=== PATIENT | male | born 1970 | race Caucasian/White ===

== ENCOUNTER 2016-11-10 12:30 | Emergency (ER) | payer SELFPAY ==
--- NOTE | 2016-11-10 12:45 | ER Document Report ---
ED Medical Screen (RME) - General Stated Complaint: DIFFICULTY BREATHING Mode of Arrival: Ambulatory Information source: Patient Notes: Patient presents emergency department with complaints of difficulty breathing that started Thursday, history of COPD . Reports fever and back pain but hx of back pain. Reports ICD. Patient also reports numbness in his left hand that comes and goes which started last week. Pt is in no distress speaks in clear sentences. Denies chest pain I have greeted and performed a rapid initial assessment of this patient. A comprehensive ED assessment and evaluation of the patient, analysis of test results and completion of the medical decision making process will be conducted by additional ED providers. TRAVEL OUTSIDE OF THE [place] IN LAST 30 DAYS: No - Related Data Allergies/Adverse Reactions: No Known Allergies Allergy (Verified 11/10/16 12:38) Past Medical History - Past Medical History Cardiac Medical History: Reports: Hx Hypercholesterolemia, Hx Hypertension Pulmonary Medical History: Reports: Hx COPD, Hx Pneumonia - Immunizations Hx Diphtheria, Pertussis, Tetanus Vaccination: Yes - 2009 Physical Exam - Vital signs Vitals: Temp Pulse Resp BP Pulse Ox 98.3 F 85 20 163/92 H 95 11/10/16 12:36 11/10/16 12:36 11/10/16 12:36 11/10/16 12:36 11/10/16 12:36 Course - Vital Signs Vital signs: Temp Pulse Resp BP Pulse Ox 98.3 F 85 20 163/92 H 95 11/10/16 12:36 11/10/16 12:36 11/10/16 12:36 11/10/16 12:36 11/10/16 12:36
[2016-11-10 13:51] LABS: ABSOLUTE BASOPHILS # (AUTO) 0.1 10^3/uL (0.0-0.2); ABSOLUTE EOSINOPHILS # (AUTO) 0.3 10^3/uL (0.0-0.6); ABSOLUTE LYMPHOCYTES (AUTO) 2.6 10^3/uL (0.5-4.7); ABSOLUTE NEUT (AUTO) 7.7 10^3/uL (1.7-8.2); BASOPHILS % (AUTO) 0.6 % (0-2); EOSINOPHILS % (AUTO) 2.4 % (0-6); HEMATOCRIT 48.2 % (37.9-51.0); HEMOGLOBIN 16.5 g/dL (13.5-17.0); HGB HCT DIFFERENCE 1.3; LYMPHOCYTES % (AUTO) 22.2 % (13-45); MEAN CORPUSCULAR HEMOGLOBIN 30.4 pg (27.0-33.4); MEAN CORPUSCULAR HGB CONC 34.1 g/dL (32.0-36.0); MEAN CORPUSCULAR VOLUME 89 fl (80-97); MONOCYTES % (AUTO) 8.3 % (3-13); RED BLOOD COUNT 5.41 10^6/uL (4.35-5.55); RED CELL DISTRIBUTION WIDTH 13.5 % (11.5-14.0); SEGMENTED NEUTROPHILS % (AUTO) 66.5 % (42-78); WHITE BLOOD COUNT 11.6 10^3/uL (4.0-10.5)
[2016-11-10 14:03] LABS: PROTHROMBIN TIME 12.5 SEC (11.4-15.4)
[2016-11-10 14:11] LABS: ALANINE AMINOTRANSFERASE 78 U/L (21-72); ALBUMIN 4.4 g/dL (3.5-5.0); ALKALINE PHOSPHATASE 61 U/L (38-126); ANION GAP 15 (5-19); ASPARTATE AMINO TRANSFERASE 39 U/L (17-59); BILIRUBIN,DIRECT 0.2 mg/dL (0.0-0.4); BILIRUBIN,TOTAL 0.4 mg/dL (0.2-1.3); BLOOD UREA NITROGEN 13 mg/dL (7-20); CALCIUM 9.5 mg/dL (8.4-10.2); CARBON DIOXIDE 29 mmol/L (22-30); CHLORIDE 101 mmol/L (98-107); CREATININE RESULT 0.61 mg/dL (0.52-1.25); GLUCOSE 92 mg/dL (75-110); SODIUM 145.1 mmol/L (137-145); TOTAL PROTEIN 7.6 g/dL (6.3-8.2)
--- NOTE | 2016-11-10 16:03 | EKG REPORT ---
SEVERITY:- ABNORMAL ECG - SINUS RHYTHM ABNRM R PROG, CONSIDER ASMI OR LEAD PLACEMENT : Confirmed by: James Goncalves 10-Nov-2016 16:03:07
[2016-11-10] MEDS ORDERED: PREDNISONE 20 MG TABLET PO ONE (16:09)
[2016-11-10] MEDS ORDERED: ALBUTEROL SULFATE 0.083% NEB 2.5 MG/3 ML AMPUL NEB ONE (16:10)
[2016-11-10] MEDS ORDERED: IPRATROPIUM/ALBUTEROL 0.5-2.5 MG/3 ML AMPUL NEB ONE (16:10)
--- NOTE | 2016-11-10 16:11 | ER Document Report ---
ED Respiratory Problem - General Chief Complaint: Cold Symptoms Stated Complaint: DIFFICULTY BREATHING Time seen by provider: 16:10 Mode of Arrival: Ambulatory Information source: Patient Notes: 46-year-old male with a history of asthma and COPD has been coughing and spitting up mucus since last Thursday. He had similar illness last month with Dr. Ayala treated with antibiotics and inhaled bronchodilators. He started feeling fatigued with increased congestion last week. The chest x-ray is negative that was done in triage. He was not going to mention this but he has intermittent tingling and numbness to his left hand that comes and goes for more than 3 months, raising his arm and shaking his hand makes it go away.. No history of MT, or cervical spine injury/arthritis. He does have chronic low back pain and takes oxycodone 20 mg 3 times a day for that pain. He is requesting a Toradol shot because his low back is hurting since he has been in bed so much. Has nebulizer at home. TRAVEL OUTSIDE OF THE [place] IN LAST 30 DAYS: No - Related Data Allergies/Adverse Reactions: No Known Allergies Allergy (Verified 11/10/16 12:38) Past Medical History - General Information source: Patient - Social History Smoking Status: Current Every Day Smoker Chew tobacco use (# tins/day): Yes Frequency of alcohol use: None Drug Abuse: None Lives with: Spouse/Significant other Family History: Reviewed & Not Pertinent Patient has suicidal ideation: No Patient has homicidal ideation: No - Past Medical History Cardiac Medical History: Reports: Hx Hypercholesterolemia, Hx Hypertension Pulmonary Medical History: Reports: Hx COPD, Hx Pneumonia Renal/ Medical History: Denies: Hx Peritoneal Dialysis - Immunizations Hx Diphtheria, Pertussis, Tetanus Vaccination: Yes - 2009 Review of Systems - Review of Systems Constitutional: See HPI EENT: See HPI Cardiovascular: No symptoms reported Respiratory: See HPI Gastrointestinal: No symptoms reported Genitourinary: No symptoms reported Male Genitourinary: No symptoms reported Musculoskeletal: See HPI Skin: No symptoms reported Hematologic/Lymphatic: No symptoms reported Neurological/Psychological: No symptoms reported Physical Exam - Vital signs Vitals: Temp Pulse Resp BP Pulse Ox 98.3 F 85 20 163/92 H 95 11/10/16 12:36 11/10/16 12:36 11/10/16 12:36 11/10/16 12:36 11/10/16 12:36 Interpretation: Normal, Hypertensive - General General appearance: Appears well, Alert In distress: None - HEENT Head: Normocephalic, Atraumatic Eyes: Normal Conjunctiva: Normal Pupils: PERRL Tympanic membrane: Normal Mucous membranes: Normal Pharynx: Erythema Neck: Supple. No: Lymphadenopathy - Respiratory Respiratory status: No respiratory distress Chest status: Nontender Breath sounds: Productive cough, Rhonchi - coarse stephen insp and exp Chest palpation: Normal - Cardiovascular Rhythm: Regular Heart sounds: Normal auscultation Murmur: No - Abdominal Inspection: Normal Distension: No distension Bowel sounds: Normal Tenderness: Nontender. No: Tender Organomegaly: No organomegaly - Back Back: Normal, Tender - lumbar muscles - Extremities General upper extremity: Normal inspection, Nontender, Normal color, Normal ROM , Normal temperature General lower extremity: Normal inspection, Nontender, Normal color, Normal ROM , Normal temperature, Normal weight bearing. No: Eduardo's sign - Neurological Neuro grossly intact: Yes Cognition: Normal Orientation: AAOx4 Celeste Coma Scale Eye Opening: Spontaneous [place] Coma Scale Verbal: Oriented Celeste Coma Scale Motor: Obeys Commands [place] Coma Scale Total: 15 Speech: Normal Motor strength normal: LUE, RUE, LLE, RLE Sensory: Normal - Psychological Associated symptoms: Normal affect, Normal mood - Skin Skin Temperature: Warm Skin Moisture: Dry Skin Color: Normal Skin irregularity: negative: Rash Course - Re-evaluation Re-evalutation: 11/10/16 17:17 Lungs clear after treatment feels like he is breathing better consult Dr. Poole, pt can f/u with dr. poole. Labs and chest x-ray are negative EKG shows normal sinus rhythm, dr. poole examined it. 11/10/16 17:17 11/10/16 17:23 - Vital Signs Vital signs: Temp Pulse Resp BP Pulse Ox 98.3 F 85 20 163/92 H 95 11/10/16 12:36 11/10/16 12:36 11/10/16 12:36 11/10/16 12:36 11/10/16 12:36 - Laboratory Result Diagrams: 11/10/16 13:09 11/10/16 13:09 Laboratory results interpreted by me: 11/10/16 11/10/16 13:09 13:09 WBC 11.6 H Sodium 145.1 H ALT 78 H Discharge - Discharge Clinical Impression: bronchitis Condition: Good Disposition: HOME, SELF-CARE Instructions: Bronchitis With Bronchospasm (Wheezing) ([facility]), Inhaled Bronchodilators ([facility]), Azithromycin ([facility]), Steroid Medication Additional Instructions: Stop smoking Drink plenty of fluids Rest Use your nebulizer 4 times a day Return to the emergency room if worse Please complete the patient satisfaction survey if you get one, and return it.. If you do not receive a survey, then you can go to the [facility] website, [email or web address] and place your comments about your very good care. Thank you very much. It was a pleasure being your medical provider today. Prescriptions: Albuterol Sulfate [Ventolin 0.083% Neb 2.5 mg/3 mL Ampul] 2.5 mg NEB Q3HP PRN # 25 vial PRN Reason: Albuterol Sulfate [Proair HFA Inhalation Aerosol 8.5 gm MDI] 2 puff IH Q3HP PRN #1 [id number] PRN Reason: Azithromycin [Zithromax] 250 mg PO DAILY #6 tablet Prednisone [Deltasone 10 mg Tablet] 10 mg PO ASDIR PRN #21 tablet PRN Reason: Referrals: ALLISON DUONG MD [Primary Care Provider] - Follow up in 3-5 days
[2016-11-10] MEDS ORDERED: KETOROLAC TROMETHAMINE 60 MG/2 ML SDV IM ONE (17:11)
[2016-11-10 17:35] VITALS: BP 133/95
== END 2016-11-10 17:33 | disposition home or self-care (01) ==
LOC: ER 12:30
DX: J40 Bronchitis, not specified as acute or chronic (principal); F17.200 Nicotine dependence, unspecified, uncomplicated; F17.220 Nicotine dependence, chewing tobacco, uncomplicated; E78.00 Pure hypercholesterolemia, unspecified; I10 Essential (primary) hypertension
CPT/HCPCS: 93005; 94640 ×2; 99284; 96372; 36415; 85025; 85610; 80053; 71020; 93010; J1885; J7512; J7620

== ENCOUNTER 2017-07-06 10:20 | Emergency (ER) | payer BC, OTHER ==
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
--- NOTE | 2017-07-06 12:32 | RADIOLOGY REPORT (SQ) ---
EXAM DESCRIPTION: ANKLE LEFT COMPLETE COMPLETED DATE/TIME: 07/06/2017 12:08 pm REASON FOR STUDY: wound with swelling and erythema, r/o OM COMPARISON: None. NUMBER OF VIEWS: Three views. TECHNIQUE: AP, lateral, and oblique radiographic images acquired of the left ankle. LIMITATIONS: None. FINDINGS: MINERALIZATION: Normal. BONES: No acute fracture or dislocation. No worrisome bone lesions. JOINTS: No effusions. SOFT TISSUES: No soft tissue swelling. No foreign body. OTHER: No other significant finding. IMPRESSION: Negative study of the left ankle. There is no evidence of osteomyelitis. TECHNICAL DOCUMENTATION: JOB ID: [id number] [employer]- All Rights Reserved
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
[2017-07-06] MEDS ORDERED: SULFAMETHOXAZOLE/TRIMETHOPRIM 800-160 MG TABLET PO ONE (13:27)
[2017-07-06 14:19] VITALS: BP 132/69
== END 2017-07-06 14:05 | disposition home or self-care (01) ==
LOC: ER 10:20
DX: L03.116 Cellulitis of left lower limb (principal); M25.572 Pain in left ankle and joints of left foot; V87.7XXD Person injured in collision between other specified motor vehicles (traffic), subsequent encounter; F17.200 Nicotine dependence, unspecified, uncomplicated
CPT/HCPCS: 87070; 87077; 87186; 87205; 99283

== ENCOUNTER → 2017-11-06 | Outpatient (CLI) | payer SELFPAY ==
--- NOTE | 2017-11-06 16:36 | RADIOLOGY REPORT (SQ) ---
EXAM DESCRIPTION: CHEST PA/LATERAL COMPLETED DATE/TIME: 11/06/2017 2:43 pm REASON FOR STUDY: PLEURISY COMPARISON: 11/10/2016 EXAM PARAMETERS: NUMBER OF VIEWS: two views TECHNIQUE: Digital Frontal and Lateral radiographic views of the chest acquired. RADIATION DOSE: NA LIMITATIONS: none FINDINGS: LUNGS AND PLEURA: No opacities, masses or pneumothorax. No pleural effusion. MEDIASTINUM AND HILAR STRUCTURES: No masses or contour abnormalities. HEART AND VASCULAR STRUCTURES: Heart normal size. No evidence for failure. BONES: No acute findings. HARDWARE: Loop recorder. OTHER: No other significant finding. IMPRESSION: NO SIGNIFICANT RADIOGRAPHIC FINDING IN THE CHEST. TECHNICAL DOCUMENTATION: JOB ID: [id number] [employer]- All Rights Reserved Reading location - IP/workstation name: [email or web address]
== END ==
LOC: OD 14:18
PROVIDERS: ATTEND Internal Medicine
DX: R09.1 Pleurisy (principal)
CPT/HCPCS: 71046

== ENCOUNTER 2019-05-12 15:23 | Inpatient (IN) | payer BC, OTHER ==
[2019-05-12] MEDS ORDERED: IPRATROPIUM/ALBUTEROL 0.5-2.5 MG/3 ML AMPUL NEB ONE ×2 (15:41→19:02)
--- NOTE | 2019-05-12 15:44 | ER Document Report ---
ED Medical Screen (RME) - General Chief Complaint: Breathing Difficulty Stated Complaint: DIFFICULTY BREATHING Time Seen by Provider: 05/12/19 15:38 Primary Care Provider: ALLISON DUONG MD [Primary Care Provider] - Follow up as needed Mode of Arrival: Ambulatory Information source: Patient Notes: Foot this 48-year-old male with history of COPD cardiac disease pleurisy. Patient reports he became short of breath yesterday. Went to see Dr. Duong today was prescribed antibiotics but he continued to become short of breath so he came here. Reports he supposed be on home oxygen but he lost his insurance so he does not have a home oxygen. O2 sat 89-95 on room air. Patient's short of breath. He denies chest pain. Reports nausea vomiting yesterday. Patient i s extremely tired but reports he works 12 hours a day and also has sleep apnea. I have greeted and performed a rapid initial assessment of this patient. A comprehensive ED assessment and evaluation of the patient, analysis of test results and completion of the medical decision making process will be conducted by additional ED providers. Dictation of this chart was performed using voice recognition software; therefore, there may be some unintended grammatical errors. TRAVEL OUTSIDE OF THE [place] IN LAST 30 DAYS: No - Related Data Allergies/Adverse Reactions: ibuprofen [From Motrin] Allergy (Verified 05/12/19 15:38) Past Medical History - Social History Chew tobacco use (# tins/day): No Frequency of alcohol use: None Drug Abuse: None - Past Medical History Cardiac Medical History: Reports: Hx Hypercholesterolemia, Hx Hypertension Pulmonary Medical History: Reports: Hx COPD, Hx Pneumonia Renal/ Medical History: Denies: Hx Peritoneal Dialysis - Immunizations Hx Diphtheria, Pertussis, Tetanus Vaccination: Yes - 2009 Physical Exam - Vital signs Vitals: Temp Pulse Resp BP Pulse Ox 97.6 F 71 17 159/81 H 95 05/12/19 15:30 05/12/19 15:30 05/12/19 15:30 05/12/19 15:30 05/12/19 15:30 Course - Vital Signs Vital signs: Temp Pulse Resp BP Pulse Ox 97.6 F 71 17 159/81 H 95 05/12/19 15:30 05/12/19 15:30 05/12/19 15:30 05/12/19 15:30 05/12/19 15:30 Doctor's Discharge - Discharge Referrals: ALLISON DUONG MD [Primary Care Provider] - Follow up as needed
[2019-05-12 16:36] LABS: ABSOLUTE LYMPHOCYTES (AUTO) 1.2 10^3/uL (0.5-4.7); ABSOLUTE MONOCYTES (AUTO) 0.1 10^3/uL (0.1-1.4); ABSOLUTE NEUT (AUTO) 9.7 10^3/uL (1.7-8.2); BASOPHILS % (AUTO) 0.3 % (0-2); EOSINOPHILS % (AUTO) 0.2 % (0-6); HEMATOCRIT 45.9 % (37.9-51.0); HEMOGLOBIN 15.3 g/dL (13.5-17.0); LYMPHOCYTES % (AUTO) 10.6 % (13-45); MEAN CORPUSCULAR HEMOGLOBIN 30.2 pg (27.0-33.4); MEAN CORPUSCULAR HGB CONC 33.3 g/dL (32.0-36.0); MEAN CORPUSCULAR VOLUME 91 fl (80-97); MONOCYTES % (AUTO) 0.7 % (3-13); PLATELET COUNT 170 10^3/uL (150-450); RED BLOOD COUNT 5.06 10^6/uL (4.35-5.55); SEGMENTED NEUTROPHILS % (AUTO) 88.2 % (42-78); TOTAL CELLS COUNTED % (AUTO) 100 %; WHITE BLOOD COUNT 10.9 10^3/uL (4.0-10.5)
--- NOTE | 2019-05-12 16:55 | RADIOLOGY REPORT (SQ) ---
EXAM DESCRIPTION: CHEST SINGLE VIEW COMPLETED DATE/TIME: 05/12/2019 4:36 pm REASON FOR STUDY: cough sob copd COMPARISON: Two-view chest 11/10/2016, 11/06/2017 EXAM PARAMETERS: NUMBER OF VIEWS: One view. TECHNIQUE: Single frontal radiographic view of the chest acquired. RADIATION DOSE: NA LIMITATIONS: None FINDINGS: LUNGS AND PLEURA: No opacities, masses or pneumothorax. No pleural effusion. MEDIASTINUM AND HILAR STRUCTURES: No masses. Contour normal. HEART AND VASCULAR STRUCTURES: Heart normal in size. Normal vasculature. BONES: No acute findings. HARDWARE: Loop recorder over the anterior left chest OTHER: No other significant finding. IMPRESSION: NO ACUTE RADIOGRAPHIC FINDING IN THE CHEST. TECHNICAL DOCUMENTATION: JOB ID: [id number] [employer]- All Rights Reserved Reading location - IP/workstation name: [email or web address]
[2019-05-12 16:59] LABS: ALBUMIN 4.5 g/dL (3.5-5.0); ALKALINE PHOSPHATASE 62 U/L (38-126); ANION GAP 10 (5-19); ASPARTATE AMINO TRANSFERASE 47 U/L (17-59); BILIRUBIN,DIRECT 0.2 mg/dL (0.0-0.4); BILIRUBIN,TOTAL 0.3 mg/dL (0.2-1.3); BLOOD UREA NITROGEN 16 mg/dL (7-20); CALCIUM 8.9 mg/dL (8.4-10.2); CARBON DIOXIDE 31 mmol/L (22-30); CHLORIDE 97 mmol/L (98-107); CREATINE KINASE 281 U/L (55-170); GLUCOSE 187 mg/dL (75-110); POTASSIUM 4.2 mmol/L (3.6-5.0); TOTAL PROTEIN 7.7 g/dL (6.3-8.2)
[2019-05-12 17:09] LABS: NT PRO BNP 47 pg/mL (<125)
[2019-05-12 17:10] LABS: TROPONIN I < 0.012 ng/mL
[2019-05-12 17:18] LABS: ARTERIAL BLOOD BASE EXCESS 3.6 mmol/L; ARTERIAL BLOOD FIO2 3L; ARTERIAL BLOOD H2CO3 1.78 mmol/L (1.05-1.35); ARTERIAL BLOOD HCO3 31.3 mmol/L (20-24); ARTERIAL BLOOD O2 SATURATION 93.1 % (94-98); ARTERIAL BLOOD PCO2 59.3 mmHg (35-45); ARTERIAL BLOOD PH 7.34 (7.35-7.45); ARTERIAL BLOOD PO2 71.5 mmHg (80-100); ARTERIAL BLOOD TOTAL CO2 33.1 mmol/L (23-27)
[2019-05-12 18:59] LABS: APPEARANCE,URINE SLIGHTLY-CLOUDY; BILIRUBIN,URINE NEGATIVE (NEGATIVE); COLOR,URINE YELLOW; GLUCOSE, URINE NEGATIVE (NEGATIVE); KETONES,URINE TRACE mg/dL (NEGATIVE); LEUKOCYTE ESTERASE,URINE NEGATIVE (NEGATIVE); NITRITE,URINE NEGATIVE (NEGATIVE); PROTEIN,URINE 100 mg/dL (NEGATIVE); UROBILINOGEN,URINE NEGATIVE mg/dL (<2.0)
[2019-05-12] MEDS ORDERED: MAG HYDROX/AL HYDROX/SIMETH SUSP 30 ML UDCUP PO ONE (19:07)
[2019-05-12] MEDS ORDERED: OXYCODONE HCL SR 10 MG TABLET PO ONE (19:45)
[2019-05-12] MEDS ORDERED: METHYLPREDNISOLONE INJ 125 MG/2 ML SDV IV ONE (19:54)
[2019-05-12] MEDS ORDERED: MAGNESIUM SULFATE/D5W 1 GM/100 ML RTUPB IV ONE (19:54)
--- NOTE | 2019-05-12 19:56 | ER Document Report ---
ED General - General Chief Complaint: Breathing Difficulty Stated Complaint: DIFFICULTY BREATHING Time Seen by Provider: 05/12/19 15:38 Primary Care Provider: ALLISON DUONG MD [Primary Care Provider] - Follow up as needed Mode of Arrival: Ambulatory TRAVEL OUTSIDE OF THE [place] IN LAST 30 DAYS: No - HPI Notes: Patient is a 48-year-old gentleman who presents emerged department for evaluation of cough and shortness of breath. He states that shortness of breath is been going on for several days. His significant other is had a cough that seems to be improving. He states his is not. He continues to be dry, tight. He complains of tightness across the anterior part of his chest, similar to when he had bronchitis in the past. He always has orthopnea, but does not really believe that it is much worse than normal. He does have significantly worse dyspnea on exertion. He states he felt as if he was fever, particularly fatigue, but no nanalisa fevers to his knowledge. He states that he used to be on oxygen therapy, but lost his insurance and was not on oxygen. 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 - Related Data Allergies/Adverse Reactions: ibuprofen [From Motrin] Allergy (Verified 05/12/19 15:38) Past Medical History - General Information source: Patient - Social History Smoking Status: Current Every Day Smoker Chew tobacco use (# tins/day): No Frequency of alcohol use: None Drug Abuse: None Family History: Reviewed & Not Pertinent Patient has suicidal ideation: No Patient has homicidal ideation: No - Past Medical History Cardiac Medical History: Reports: Hx Hypercholesterolemia, Hx Hypertension Pulmonary Medical History: Reports: Hx COPD, Hx Pneumonia Renal/ Medical History: Denies: Hx Peritoneal Dialysis Musculoskeletal Medical History: Reports Other - Back pain - Immunizations Hx Diphtheria, Pertussis, Tetanus Vaccination: Yes - 2009 Review of Systems - Review of Systems Constitutional: See HPI EENT: No symptoms reported Cardiovascular: See HPI Respiratory: See HPI Gastrointestinal: No symptoms reported Genitourinary: No symptoms reported Musculoskeletal: No symptoms reported Skin: No symptoms reported Neurological/Psychological: No symptoms reported Physical Exam - Vital signs Vitals: Temp Pulse Resp BP Pulse Ox 97.6 F 71 17 159/81 H 95 05/12/19 15:30 05/12/19 15:30 05/12/19 15:30 05/12/19 15:30 05/12/19 15:30 - Notes Notes: Vital signs reviewed, please refer to chart. Head is normocephalic, atraumatic. Pupils equal round, reactive to light. Neck is supple without meningismus. Heart is regular rate and rhythm. Lungs reveal diminished breath sounds throughout with expiratory wheezes, worse at the bases. Abdomen is soft, nontender, normoactive bowel sounds throughout. Extremities without cyanosis, clubbing. 1+ pitting bilateral lower extremity edema. Posterior calves are nontender. Peripheral pulses are equal. Skin is warm and dry. Patient is awake, alert, neurological exam is nonfocal. Course - Re-evaluation Re-evalutation: 05/12/19 19:52 Patient presents emergency department for evaluation. He initially came in with shortness of breath. He had a cardiac work-up, treated for COPD exacerbation. During the course of his stay, the patient had telemetry which revealed a continued sinus mechanism, but a heart rate of about 35. The patient's heart rate was labile while here. For the majority of the time his heart rate was in the 70s and 80s. He did have some drops down into the 40s. I could not correl ate any significant increase in his symptoms with this change in telemetry. After 2 duo nebs, IV magnesium, Solu-Medrol, the patient remained short of breath. Given this as well as his variable heart rate, I am inclined to admit the patient. His x-ray failed to reveal pneumonia. Awaiting phone call return for medicine. 05/12/19 19:58 Dr. Vega will admit the patient - Vital Signs Vital signs: Temp Pulse Resp BP Pulse Ox 98.3 F 91 20 165/92 H 95 05/12/19 19:32 05/12/19 19:32 05/12/19 19:32 05/12/19 19:32 05/12/19 19:32 - Laboratory Result Diagrams: 05/12/19 16:02 05/12/19 16:02 Laboratory results interpreted by me: 05/12/19 05/12/19 05/12/19 16:02 16:02 17:00 WBC 10.9 H Lymph % (Auto) 10.6 L [place] % (Auto) 0.7 L Absolute Neuts (auto) 9.7 H Seg Neutrophils % 88.2 H Carbonic Acid 1.78 H ABG pH 7.34 L ABG pCO2 59.3 H ABG pO2 71.5 L ABG HCO3 31.3 H ABG Total CO2 33.1 H ABG O2 Saturation 93.1 L Chloride 97 L Carbon Dioxide 31 H Creatinine 0.51 L Glucose 187 H Creatine Kinase 281 H Urine Protein Urine Ketones Urine Ascorbic Acid 05/12/19 18:30 WBC Lymph % (Auto) [place] % (Auto) Absolute Neuts (auto) Seg Neutrophils % Carbonic Acid ABG pH ABG pCO2 ABG pO2 ABG HCO3 ABG Total CO2 ABG O2 Saturation Chloride Carbon Dioxide Creatinine Glucose Creatine Kinase Urine Protein 100 H Urine Ketones TRACE H Urine Ascorbic Acid 40 H - Diagnostic Test Radiology reviewed: Reports reviewed Radiology results interpreted by me: 05/12/19 19:58 Chest X-Ray 05/12/19 15:42 IMPRESSION: NO ACUTE RADIOGRAPHIC FINDING IN THE CHEST. - EKG Interpretation by Me Additional EKG results interpreted by me: 05/12/19 19:58 Sinus mechanism with a rate of 85 bpm. Normal axis and intervals, nonspecific ST changes, but no acute changes concerning for ischemia or infarction. Critical Care Note - Critical Care Note Total time excluding time spent on procedures (mins): 20 Discharge - Discharge Clinical Impression: COPD with acute exacerbation, Hypoxemia, intermittent bradycardia, Hypercarbia Condition: Stable Disposition: ADMITTED INPATIENT Admitting Provider: Gary (Hospitalist) Unit Admitted: IMCU Referrals: ALLISON DUONG MD [Primary Care Provider] - Follow up as needed
[2019-05-12] MEDS ORDERED: IPRATROPIUM/ALBUTEROL 0.5-2.5 MG/3 ML AMPUL NEB PRN (19:58)
[2019-05-12] MEDS ORDERED: HYDRALAZINE HCL INJ/PF 20 MG/1 ML SDV IV PRN (19:58)
[2019-05-12] MEDS ORDERED: ACETAMINOPHEN 325 MG TABLET PO PRN (19:58)
[2019-05-12] MEDS: IPRATROPIUM/ALBUTEROL 0.5-2.5 MG/3 ML AMPUL NEB SCH (20:58)
[2019-05-12] MEDS ORDERED: CEFTRIAXONE 1 GM/D5W RTU 1 GM/50 ML RTUPB IV SCH (21:00)
[2019-05-12] MEDS: HEPARIN SOD (PORCINE) 5,000 UNIT/ML 1 ML VIAL SUBCUT SCH (21:17)
[2019-05-12 21:31] LABS: URINE AMPHETAMINES SCREEN UNCONFIRMED POSITIVE; URINE BARBITURATES SCREEN NEGATIVE; URINE BENZODIAZEPINES SCREEN NEGATIVE; URINE COCAINE SCREEN NEGATIVE; URINE MARIJUANA (THC) SCREEN NEGATIVE; URINE METHADONE SCREEN NEGATIVE; URINE PHENCYCLIDINE SCREEN NEGATIVE
[2019-05-12] MEDS ORDERED: AZITHROMYCIN 500 MG in DEXTROSE 5%-WATER 250 ML IV SCH (22:00)
[2019-05-12] MEDS: FLUTICASONE NASAL SPRAY 50 MCG/SPRY 120 SPRAY/16 GM NASL SCH (23:14)
[2019-05-12] MEDS: PREDNISONE 20 MG TABLET PO SCH (23:17)
[2019-05-13] MEDS: IPRATROPIUM/ALBUTEROL 0.5-2.5 MG/3 ML AMPUL NEB SCH ×4 (02:16→20:51)
--- NOTE | 2019-05-13 04:59 | PDOC H&P ---
History of Present Illness Admission Date/PCP: 05/12/19 20:06 ALLISON DUONG Patient complains of: Shortness of breath History of Present Illness: MALIK ANTOINE JR is a 48 year old male with a past medical history of morbid obesity, hypertension, obstructive sleep apnea, ongoing tobacco abuse, opiate dependent chronic pain on Opana 5 twice daily, Valium 5 every 6 hours, Flexeril 10 every 6. He presents with shortness of breath, nonproductive cough denying rhinorrhea or sore throat but admits to uncontrolled acid reflux, and upper airway wheeze and noncompliance with BiPAP. In the emergency room is found to have tachypnea, uncontrolled hypertension, h ypoxia and hypercapnia. He receives albuterol, oxygen and referred to the hospitalist for admission. BiPAP is ordered for a PCO2 of 60 and a PO2 of 70. Past Medical History Cardiac Medical History: Reports: Hyperlipidema, Hypertension Pulmonary Medical History: Reports: Chronic Obstructive Pulmonary Disease (COPD), Pneumonia Endocrine Medical History: Reports: Obesity Musculoskeltal Medical History: Reports: Other - Back pain Psychiatric Medical History: Reports: Tobacco Dependency Social History Information Source: Patient Smoking Status: Current Every Day Smoker Frequency of Alcohol Use: Rare Drugs: None - Advance Directive Resuscitation Status: Full Code Family History Family History: Arthritis, COPD Parental Family History Reviewed: Yes Children Family History Reviewed: Yes Sibling(s) Family History Reviewed.: Yes Medication/Allergy Home Medications: Cyclobenzaprine HCl [Flexeril 10 Mg Tablet] 10 mg PO Q6H PRN #15 tablet 03/29/13 Hydrocodone Bit/Acetaminophen [Vicodin 5-500 mg Tablet] 1 - 2 tab PO Q4H PRN #20 tablet 03/29/13 Oxymorphone HCl [Opana] 5 mg PO BID 03/29/13 Cyclobenzaprine HCl [Flexeril 10 Mg Tablet] 10 mg PO TIDP PRN #20 tablet 07/03/14 Albuterol Sulfate [Proair HFA Inhalation Aerosol 8.5 gm MDI] 2 puff IH Q3HP PRN #1 hfa.aer.ad 11/10/16 Albuterol Sulfate [Ventolin 0.083% Neb 2.5 mg/3 mL Ampul] 2.5 mg NEB Q3HP PRN #25 vial 11/10/16 Azithromycin [Zithromax] 250 mg PO DAILY #6 tablet 11/10/16 Prednisone [Deltasone 10 mg Tablet] 10 mg PO ASDIR PRN #21 tablet 11/10/16 Diazepam [Valium 5 mg Tablet] 10 mg PO QIDP PRN #20 tablet 06/29/17 Sulfamethoxazole/Trimethoprim [Bactrim Ds Tablet] 2 each PO BID #28 tablet 07/06/17 Allergies/Adverse Reactions: ibuprofen [From Motrin] Allergy (Verified 05/12/19 15:38) Review of Systems Constitutional: PRESENT: as per HPI, fatigue, weakness, weight gain. ABSENT: chills, fever(s), headache(s), weight loss Eyes: ABSENT: visual disturbances Ears: ABSENT: hearing changes Cardiovascular: ABSENT: chest pain, dyspnea on exertion, edema, orthropnea, palpitations Respiratory: PRESENT: as per HPI, cough, dyspnea. ABSENT: hemoptysis Gastrointestinal: ABSENT: abdominal pain, constipation, diarrhea, hematemesis, hematochezia, nausea, vomiting Genitourinary: ABSENT: dysuria, hematuria Musculoskeletal: ABSENT: joint swelling Integumentary: ABSENT: rash, wounds Neurological: ABSENT: abnormal gait, abnormal speech, confusion, dizziness, focal weakness, syncope Psychiatric: ABSENT: anxiety, depression, homidical ideation, suicidal ideation Endocrine: ABSENT: cold intolerance, heat intolerance, polydipsia, polyuria Hematologic/Lymphatic: ABSENT: easy bleeding, easy bruising Physical Exam Vital Signs: Temp Pulse Resp BP Pulse Ox 98.2 F 57 L 16 140/84 H 93 05/13/19 04:17 05/13/19 04:17 05/13/19 04:17 05/13/19 04:17 05/13/19 04:17 Intake & Output 05/11/19 05/12/19 05/13/19 11:59 11:59 11:59 Intake Total 500 Balance 500 Weight 124.6 kg General appearance: PRESENT: cooperative, disheveled, morbidly obese, well- developed, well-nourished Head exam: PRESENT: atraumatic, normocephalic Eye exam: PRESENT: conjunctiva pink, EOMI, PERRLA. ABSENT: scleral icterus Ear exam: PRESENT: normal external ear exam Mouth exam: PRESENT: moist, tongue midline Throat exam: PRESENT: post pharyngeal erythema Neck exam: PRESENT: full ROM. ABSENT: carotid bruit, JVD, lymphadenopathy, thyromegaly Respiratory exam: PRESENT: accessory muscle use, decreased breath sounds, prolonged expiratory phas, retraction, symmetrical, tachypnea, wheezes - Upper airway wheeze overcome by increased effort. ABSENT: rales, rhonchi Cardiovascular exam: PRESENT: RRR, tachycardia. ABSENT: diastolic murmur, rubs, systolic murmur Pulses: PRESENT: normal dorsalis pedis pul Vascular exam: PRESENT: normal capillary refill GI/Abdominal exam: PRESENT: distended, hypoactive bowel sounds, normal bowel sounds, soft. ABSENT: guarding, mass, organolmegaly, rebound, tenderness Rectal exam: PRESENT: deferred Extremities exam: PRESENT: full ROM. ABSENT: calf tenderness, clubbing, pedal edema Neurological exam: PRESENT: alert, awake, oriented to person, oriented to place, oriented to time, oriented to situation, CN II-XII grossly intact. ABSENT: motor sensory deficit Psychiatric exam: PRESENT: appropriate affect, normal mood. ABSENT: homicidal ideation, suicidal ideation Skin exam: PRESENT: dry, intact, warm. ABSENT: cyanosis, rash Results Laboratory Results: 05/12/19 16:02 05/12/19 16:02 05/12/19 05/12/19 05/12/19 16:02 16:02 17:00 WBC 10.9 H RBC 5.06 Hgb 15.3 Hct 45.9 MCV 91 MCH 30.2 MCHC 33.3 RDW 13.0 Plt Count 170 Seg Neutrophils % 88.2 H Carbonic Acid 1.78 H HCO3/H2CO3 Ratio 17:1 ABG pH 7.34 L ABG pCO2 59.3 H ABG pO2 71.5 L ABG HCO3 31.3 H ABG O2 Saturation 93.1 L ABG Base Excess 3.6 FiO2 3L Sodium 138.0 Potassium 4.2 Chloride 97 L Carbon Dioxide 31 H Anion Gap 10 BUN 16 Creatinine 0.51 L Est GFR ( Amer) > 60 Glucose 187 H Calcium 8.9 Total Bilirubin 0.3 AST 47 Alkaline Phosphatase 62 Total Protein 7.7 Albumin 4.5 Urine Color Urine Appearance Urine pH Ur Specific [place] Urine Protein Urine Glucose (UA) Urine Ketones Urine Blood Urine Nitrite Ur Leukocyte Esterase Urine WBC (Auto) Urine RBC (Auto) 05/12/19 18:30 WBC RBC Hgb Hct MCV MCH MCHC RDW Plt Count Seg Neutrophils % Carbonic Acid HCO3/H2CO3 Ratio ABG pH ABG pCO2 ABG pO2 ABG HCO3 ABG O2 Saturation ABG Base Excess FiO2 Sodium Potassium Chloride Carbon Dioxide Anion Gap BUN Creatinine Est GFR ( Amer) Glucose Calcium Total Bilirubin AST Alkaline Phosphatase Total Protein Albumin Urine Color YELLOW Urine Appearance SLIGHTLY-CLOUDY Urine pH 5.0 Ur Specific [place] 1.030 Urine Protein 100 H Urine Glucose (UA) NEGATIVE Urine Ketones TRACE H Urine Blood NEGATIVE Urine Nitrite NEGATIVE Ur Leukocyte Esterase NEGATIVE Urine WBC (Auto) 1 Urine RBC (Auto) 0 05/12/19 05/12/19 16:02 16:02 Creatine Kinase 281 H Troponin I < 0.012 NT-Pro-B Natriuret Pep 47 Impressions: Chest X-Ray 05/12/19 15:42 IMPRESSION: NO ACUTE RADIOGRAPHIC FINDING IN THE CHEST. Assessment and Plan - Diagnosis (1) Acute hypercapnic respiratory failure Is this a current diagnosis for this admission?: Yes Plan: Multifactorial secondary to opiate and benzodiazepine dependence, BiPAP noncompliance and underlying COPD exacerbation. BiPAP and education, supplemental oxygen, albuterol and Atrovent, flutter valve and incentive spirometry, empiric antibiotics, steroids, Flonase, prednisone, (2) GERD (gastroesophageal reflux disease) Is this a current diagnosis for this admission?: Yes Plan: PPI and education (3) Obstructive sleep apnea Is this a current diagnosis for this admission?: Yes Plan: BiPAP and education (4) Opiate dependence Is this a current diagnosis for this admission?: Yes Plan: Limit for increased respiratory drive, avoid withdrawal (5) Benzodiazepine dependence Is this a current diagnosis for this admission?: Yes Plan: Limited for increased respiratory drive, avoid withdrawal (6) Constipation Is this a current diagnosis for this admission?: Yes Plan: Lactulose and Fleet enema ordered. - Time Time Spent with patient: 25-34 minutes - Inpatient Certification Medical Necessity: Need Close Monitoring Due to Risk of Patient Decompensation
[2019-05-13] MEDS: HEPARIN SOD (PORCINE) 5,000 UNIT/ML 1 ML VIAL SUBCUT SCH ×3 (05:06→21:18)
[2019-05-13 06:36] LABS: ANION GAP 11 (5-19); BLOOD UREA NITROGEN 13 mg/dL (7-20); CALCIUM 9.1 mg/dL (8.4-10.2); CARBON DIOXIDE 30 mmol/L (22-30); CHLORIDE 96 mmol/L (98-107); GLUCOSE 222 mg/dL (75-110); POTASSIUM 4.4 mmol/L (3.6-5.0)
[2019-05-13 06:40] LABS: ABSOLUTE BASOPHILS # (AUTO) 0.1 10^3/uL (0.0-0.2); ABSOLUTE EOSINOPHILS # (AUTO) 0.1 10^3/uL (0.0-0.6); ABSOLUTE LYMPHOCYTES (AUTO) 1.2 10^3/uL (0.5-4.7); ABSOLUTE MONOCYTES (AUTO) 0.3 10^3/uL (0.1-1.4); ABSOLUTE NEUT (AUTO) 15.5 10^3/uL (1.7-8.2); BASOPHILS % (AUTO) 0.4 % (0-2); EOSINOPHILS % (AUTO) 0.3 % (0-6); HEMATOCRIT 44.3 % (37.9-51.0); HEMOGLOBIN 14.9 g/dL (13.5-17.0); LYMPHOCYTES % (AUTO) 7.1 % (13-45); MEAN CORPUSCULAR HEMOGLOBIN 30.3 pg (27.0-33.4); MEAN CORPUSCULAR HGB CONC 33.5 g/dL (32.0-36.0); MEAN CORPUSCULAR VOLUME 90 fl (80-97); MONOCYTES % (AUTO) 1.7 % (3-13); PLATELET COUNT 171 10^3/uL (150-450); RED BLOOD COUNT 4.91 10^6/uL (4.35-5.55); SEGMENTED NEUTROPHILS % (AUTO) 90.5 % (42-78); TOTAL CELLS COUNTED % (AUTO) 100 %; WHITE BLOOD COUNT 17.1 10^3/uL (4.0-10.5)
[2019-05-13] MEDS: PREDNISONE 20 MG TABLET PO SCH ×2 (09:11→18:54)
[2019-05-13] MEDS: FLUTICASONE NASAL SPRAY 50 MCG/SPRY 120 SPRAY/16 GM NASL SCH ×2 (09:24→22:30)
--- NOTE | 2019-05-13 16:22 | PDOC PROGRESS REPORT ---
Subjective Progress Note for:: 05/13/19 Subjective:: MALIK ANTOINE JR is a 48 year old male with a past medical history of morbid obesity, hypertension, obstructive sleep apnea, ongoing tobacco abuse, opiate dependent chronic pain who was admitted 05/12/2019 for acute hypercapnic respiratory failure. The patient was seen on morning rounds with his family members present. He is found sitting up to the edge of the bed, comfortably on room air. He is noted to have even unlabored respirations, no accessory muscle use, speaking full sentences without difficulty. He tells me that he is feeling much better today. He does note that he continues to have slight shortness of breath with activity. He admits to noncompliance with CPAP machine at home; has not completed the second half of sleep study to arrange for proper fitting/settings to be determined. He denies fever, chills, chest pain, palpitations, cough, abdominal pain, nausea vomiting and diarrhea. He is requesting to be discharged home soon as possible. They have no other questions or concerns at this time. Reason For Visit: HYPERCAPNIC RESP FAILURE PNEUMONIA Physical Exam Vital Signs: Temp Pulse Resp BP Pulse Ox 97.8 F 80 18 141/62 H 91 L 05/13/19 12:46 05/13/19 14:35 05/13/19 14:35 05/13/19 12:46 05/13/19 14:35 Intake & Output 05/12/19 05/13/19 05/14/19 06:59 06:59 06:59 Intake Total 822 800 Balance 822 800 Weight 127.4 kg General appearance: PRESENT: no acute distress, cooperative, morbidly obese, well-developed, well-nourished Head exam: PRESENT: atraumatic, normocephalic Eye exam: PRESENT: conjunctiva pink, EOMI, PERRLA. ABSENT: scleral icterus Ear exam: PRESENT: normal external ear exam Mouth exam: PRESENT: moist, tongue midline Neck exam: ABSENT: carotid bruit, JVD, lymphadenopathy, thyromegaly Respiratory exam: PRESENT: clear to auscultation stephen, symmetrical, unlabored. ABSENT: rales, rhonchi, wheezes Cardiovascular exam: PRESENT: RRR, +S1, +S2. ABSENT: diastolic murmur, rubs, systolic murmur Pulses: PRESENT: normal dorsalis pedis pul Vascular exam: PRESENT: normal capillary refill GI/Abdominal exam: PRESENT: normal bowel sounds, soft, other - rotund. ABSENT: distended, guarding, mass, organolmegaly, rebound, tenderness Rectal exam: PRESENT: deferred Extremities exam: PRESENT: full ROM. ABSENT: calf tenderness, clubbing, pedal edema Neurological exam: PRESENT: alert, awake, oriented to person, oriented to place, oriented to time, oriented to situation, CN II-XII grossly intact. ABSENT: motor sensory deficit Psychiatric exam: PRESENT: appropriate affect, normal mood. ABSENT: homicidal ideation, suicidal ideation Skin exam: PRESENT: dry, intact, warm. ABSENT: cyanosis, rash Results Laboratory Results: 05/13/19 06:05 05/13/19 06:05 05/12/19 05/12/19 05/12/19 16:02 16:02 17:00 WBC 10.9 H RBC 5.06 Hgb 15.3 Hct 45.9 MCV 91 MCH 30.2 MCHC 33.3 RDW 13.0 Plt Count 170 Seg Neutrophils % 88.2 H Carbonic Acid 1.78 H HCO3/H2CO3 Ratio 17:1 ABG pH 7.34 L ABG pCO2 59.3 H ABG pO2 71.5 L ABG HCO3 31.3 H ABG O2 Saturation 93.1 L ABG Base Excess 3.6 FiO2 3L Sodium 138.0 Potassium 4.2 Chloride 97 L Carbon Dioxide 31 H Anion Gap 10 BUN 16 Creatinine 0.51 L Est GFR ( Amer) > 60 Glucose 187 H Calcium 8.9 Total Bilirubin 0.3 AST 47 Alkaline Phosphatase 62 Total Protein 7.7 Albumin 4.5 Urine Color Urine Appearance Urine pH Ur Specific [place] Urine Protein Urine Glucose (UA) Urine Ketones Urine Blood Urine Nitrite Ur Leukocyte Esterase Urine WBC (Auto) Urine RBC (Auto) 05/12/19 05/13/19 05/13/19 18:30 06:05 06:05 WBC 17.1 H RBC 4.91 Hgb 14.9 Hct 44.3 MCV 90 MCH 30.3 MCHC 33.5 RDW 13.0 Plt Count 171 Seg Neutrophils % 90.5 H Carbonic Acid HCO3/H2CO3 Ratio ABG pH ABG pCO2 ABG pO2 ABG HCO3 ABG O2 Saturation ABG Base Excess FiO2 Sodium 136.7 L Potassium 4.4 Chloride 96 L Carbon Dioxide 30 Anion Gap 11 BUN 13 Creatinine 0.43 L Est GFR ( Amer) > 60 Glucose 222 H Calcium 9.1 Total Bilirubin AST Alkaline Phosphatase Total Protein Albumin Urine Color YELLOW Urine Appearance SLIGHTLY-CLOUDY Urine pH 5.0 Ur Specific [place] 1.030 Urine Protein 100 H Urine Glucose (UA) NEGATIVE Urine Ketones TRACE H Urine Blood NEGATIVE Urine Nitrite NEGATIVE Ur Leukocyte Esterase NEGATIVE Urine WBC (Auto) 1 Urine RBC (Auto) 0 05/12/19 05/12/19 16:02 16:02 Creatine Kinase 281 H Troponin I < 0.012 NT-Pro-B Natriuret Pep 47 Impressions: Chest X-Ray 05/12/19 15:42 IMPRESSION: NO ACUTE RADIOGRAPHIC FINDING IN THE CHEST. Assessment and Plan - Diagnosis (1) Acute hypercapnic respiratory failure Is this a current diagnosis for this admission?: Yes Plan: Significantly improved; now maintaining oxygen saturations while at rest on room air. Patient does continue to have dyspnea on minimal exertion. Multifactorial secondary to opiate and benzodiazepine dependence, BiPAP noncompliance and underlying COPD exacerbation. Patient is admitted to [facility] [place] [facility] on continuous cardiac telemetry. He is provided supplemental oxygen and BiPAP as needed to maintain oxygen saturations between 89 and 92% given his likely underlying COPD. Continue Flonase and p.o. prednisone. He was empirically placed on IV azithromycin and Rocephin for treatment of bronchitis/community-acquired pneumonia. Chest x-ray is negative, lung sounds are clear, patient remains afebrile, and WBCs are elevated related to steroid use in the ED and PCPs office, I do not feel that the patient has active pneumon ia at this time. Will discontinue further antibiotic therapy. Encourage pulmonary toilet; ambulating in hallways, incentive spirometer, and flutter valve. (2) GERD (gastroesophageal reflux disease) Is this a current diagnosis for this admission?: Yes Plan: PPI and education (3) Obstructive sleep apnea Is this a current diagnosis for this admission?: Yes Plan: BiPAP nightly and as needed. Discussed importance of completing sleep study. (4) Opiate dependence Is this a current diagnosis for this admission?: Yes Plan: Verified patient's oxycodone prescriptions through the [place] controlled substance database. The patient does receive oxycodone 20 mg #120 monthly. Medication was held on admission for increased respiratory drive We will resume today at 75% dosing (15 mg every 6 hours as needed) to avoid withdrawal. (5) Tobacco dependence Is this a current diagnosis for this admission?: Yes Plan: Smoking cessation strongly encouraged; more than 10 minutes spent specifically on this topic. Nicotine replacement therapies provided. (6) Constipation Is this a current diagnosis for this admission?: Yes Plan: Resolved following lactulose and Fleet enema - Time Time Spent with patient: 25-34 minutes Smoking Cessation Education: over 10 minutes Medications reviewed and adjusted accordingly: Yes Anticipated discharge: Home Within: within 24 hours
[2019-05-13] MEDS: OXYCODONE HCL IR 5 MG TABLET PO SCH (18:52)
[2019-05-13] MEDS: NICOTINE 21 MG/24 HR PATCH.TD24 TD SCH (18:56)
[2019-05-14] MEDS: OXYCODONE HCL IR 5 MG TABLET PO SCH ×3 (00:53→12:03)
[2019-05-14] MEDS: IPRATROPIUM/ALBUTEROL 0.5-2.5 MG/3 ML AMPUL NEB SCH ×2 (02:16→08:15)
[2019-05-14] MEDS: HEPARIN SOD (PORCINE) 5,000 UNIT/ML 1 ML VIAL SUBCUT SCH (05:13)
--- NOTE | 2019-05-14 09:02 | EKG REPORT ---
SEVERITY:- ABNORMAL ECG - SINUS RHYTHM CONSIDER ANTEROSEPTAL INFARCT : Confirmed by: James Goncalves 14-May-2019 09:01:58
--- NOTE | 2019-05-14 09:04 | EKG REPORT ---
SEVERITY:- BORDERLINE ECG - SINUS RHYTHM BORDERLINE R WAVE PROGRESSION, ANTERIOR LEADS : Confirmed by: James Goncalves 14-May-2019 09:02:03
[2019-05-14] MEDS: NICOTINE 21 MG/24 HR PATCH.TD24 TD SCH (09:40)
[2019-05-14] MEDS: PREDNISONE 20 MG TABLET PO SCH (09:40)
[2019-05-14] MEDS: FLUTICASONE NASAL SPRAY 50 MCG/SPRY 120 SPRAY/16 GM NASL SCH (09:45)
[2019-05-14] MEDS ORDERED: LISINOPRIL 10 MG TABLET PO SCH (10:00)
[2019-05-14] MEDS ORDERED: HYDROCHLOROTHIAZIDE 25 MG TABLET PO ONE (12:15)
[2019-05-14 12:28] VITALS: BP 169/98
--- NOTE | 2019-05-15 16:24 | PDOC DISCHARGE SUMMARY ---
Impression - Admit/DC Date/PCP Admission Date/Primary Care Provider: 05/12/19 20:06 ALLISON DUONG Discharge Date: 05/14/19 - Discharge Diagnosis (1) Acute hypercapnic respiratory failure Is this a current diagnosis for this admission?: Yes (2) GERD (gastroesophageal reflux disease) Is this a current diagnosis for this admission?: Yes (3) Obstructive sleep apnea Is this a current diagnosis for this admission?: Yes (4) Opiate dependence Is this a current diagnosis for this admission?: Yes (5) Tobacco dependence Is this a current diagnosis for this admission?: Yes (6) Constipation Is this a current diagnosis for this admission?: Yes - Additional Information Resuscitation Status: Full Code Discharge Diet: Cardiac, Other (Comments) Discharge Activity: Activity As Tolerated, Balance Activity w/Rest, Supervised Activity Referrals: ALLISON DUONG MD [Primary Care Provider] - Follow up as needed Prescriptions: Prednisone [Deltasone 20 mg Tablet] 60 mg PO DAILY #12 tablet Ipratropium/Albuterol Sulfate [Duoneb 3 ml Ampul] 3 ml NEB RTQ8HP PRN #90 vial. neb PRN Reason: For shortness of breath/wheeze Fluticasone Propionate [Flonase Nasal Bristol 50 Mcg/[place] 16 gm] 2 spray NASL Q12 #1 spray.pump Nicotine [Nicoderm 21 mg/24 Hr Transderm Patch] 1 each TD DAILY #30 patch.td24 Lisinopril [Prinivil 10 mg Tablet] 20 mg PO DAILY #30 tablet Albuterol Sulfate [Ventolin 0.083% Neb 2.5 mg/3 mL Ampul] 1 vial NEB RTQ6HP PRN #120 PRN Reason: Shortness Of Breath Albuterol Sulfate [Ventolin Hfa 8 gm Mdi (1 Mdi/ER Disp)] 2 puff IH Q4HP PRN #1 inhaler PRN Reason: Shortness Of Breath Home Medications: Dextroamphetamine/Amphetamine [Adderall 20 mg Tablet] 20 mg PO BID 05/13/19 Oxycodone HCl 20 mg PO Q6 05/13/19 Varenicline Tartrate [Chantix 1 mg Tablet] 1 mg PO BID 05/13/19 Acetaminophen [Tylenol 325 mg Tablet] 650 mg PO Q4HP PRN tablet 05/14/19 Albuterol Sulfate [Ventolin 0.083% Neb 2.5 mg/3 mL Ampul] 1 vial NEB RTQ6HP PRN #120 05/14/19 Albuterol Sulfate [Ventolin Hfa 8 gm Mdi (1 Mdi/ER Disp)] 2 puff IH Q4HP PRN #1 inhaler 05/14/19 Fluticasone Propionate [Flonase Nasal [place] 50 Mcg/[place] 16 gm] 2 spray NASL Q12 #1 spray.pump 05/14/19 Ipratropium/Albuterol Sulfate [Duoneb 3 ml Ampul] 3 ml NEB RTQ8HP PRN #90 vial.neb 05/14/19 Lisinopril [Prinivil 10 mg Tablet] 20 mg PO DAILY #30 tablet 05/14/19 Nicotine [Nicoderm 21 mg/24 Hr Transderm Patch] 1 each TD DAILY #30 patch.td24 05/14/19 Prednisone [Deltasone 20 mg Tablet] 60 mg PO DAILY #12 tablet 05/14/19 History of Present Illiness History of Present Illness: Per H&P by Dr. Vega: MALIK ANTOINE JR is a 48 year old male with a past medical history of morbid obesity, hypertension, obstructive sleep apnea, ongoing tobacco abuse, opiate dependent chronic pain on Opana 5 twice daily, Valium 5 every 6 hours, Flexeril 10 every 6. He presents with shortness of breath, nonproductive cough denying rhinorrhea or sore throat but admits to uncontrolled acid reflux, and upper airway wheeze and noncompliance with BiPAP. In the emergency room is found to have tachypnea, uncontrolled hypertension, hypoxia and hypercapnia. He receives albuterol, oxygen and referred to the hospitalist for admission. BiPAP is ordered for a PCO2 of 60 and a PO2 of 70. Hospital Course Hospital Course: The patient was admitted to [facility] on continuous cardiac telemetry. He was supported with supplemental oxygen and BiPAP as needed to maintain saturations greater than 89%. He was started on Flonase, p.o. prednisone, and Mucinex therapy. He was empirically placed on IV azithromycin and Rocephin while considering community-acquired pneumonia; this is been ruled out and antibiotics discontinued. Pulmonary toilet was encouraged with incentive spirometer, flutter valve, and frequent position changes/ambulation. The patient's respiratory symptoms rapidly improved. He was noted to be noncompliant with BiPAP therapy despite multiple education attempts by provider and nursing staff. On telemetry, the patient was noted to have short periods of bradycardia, skipped beats and pauses; none longer than 3 seconds while sleeping off of BiPAP. Soon as the long discussion was had with the patient and regarding the importance of smoking cessation and CPAP compliance at home. The patient was discharged home in stable condition. At time of discharge, he was asymptomatic, and ambulatory on room air. He is instructed to follow-up with his primary care provider within 1 week. He is advised to take his medications as prescribed. Smoking cessation was strongly encouraged. CPAP compliance was reinforced. Patient was instructed to return to the emergency department as needed for concerning symptoms. Physical Exam Vital Signs: Temp Pulse Resp BP Pulse Ox 98.3 F 96 19 146/91 H 99 05/14/19 11:57 05/14/19 11:57 05/14/19 11:57 05/14/19 11:57 05/14/19 11:57 Intake & Output 05/14/19 05/15/19 05/16/19 06:59 06:59 06:59 Intake Total 1350 Balance 1350 Weight 123.6 kg Results Laboratory Results: WBC 17.1 10^3/uL (4.0-10.5) H 05/13/19 06:05 RBC 4.91 10^6/uL (4.35-5.55) 05/13/19 06:05 Hgb 14.9 g/dL (13.5-17.0) 05/13/19 06:05 Hct 44.3 % (37.9-51.0) 05/13/19 06:05 MCV 90 fl (80-97) 05/13/19 06:05 MCH 30.3 pg (27.0-33.4) 05/13/19 06:05 MCHC 33.5 g/dL (32.0-36.0) 05/13/19 06:05 RDW 13.0 % (11.5-14.0) 05/13/19 06:05 Plt Count 171 10^3/uL (150-450) 05/13/19 06:05 Lymph % (Auto) 7.1 % (13-45) L 05/13/19 06:05 [place] % (Auto) 1.7 % (3-13) L 05/13/19 06:05 Eos % (Auto) 0.3 % (0-6) 05/13/19 06:05 Baso % (Auto) 0.4 % (0-2) 05/13/19 06:05 Absolute Neuts (auto) 15.5 10^3/uL (1.7-8.2) H 05/13/19 06:05 Absolute Lymphs (auto) 1.2 10^3/uL (0.5-4.7) 05/13/19 06:05 Absolute Monos (auto) 0.3 10^3/uL (0.1-1.4) 05/13/19 06:05 Absolute Eos (auto) 0.1 10^3/uL (0.0-0.6) 05/13/19 06:05 Absolute Basos (auto) 0.1 10^3/uL (0.0-0.2) 05/13/19 06:05 Seg Neutrophils % 90.5 % (42-78) H 05/13/19 06:05 Carbonic Acid 1.78 mmol/L (1.05-1.35) H 05/12/19 17:00 HCO3/H2CO3 Ratio 17:1 05/12/19 17:00 ABG pH 7.34 (7.35-7.45) L 05/12/19 17:00 ABG pCO2 59.3 mmHg (35-45) H 05/12/19 17:00 ABG pO2 71.5 mmHg (80-100) L 05/12/19 17:00 ABG HCO3 31.3 mmol/L (20-24) H 05/12/19 17:00 ABG Total CO2 33.1 mmol/L (23-27) H 05/12/19 17:00 ABG O2 Saturation 93.1 % (94-98) L 05/12/19 17:00 ABG Base Excess 3.6 mmol/L 05/12/19 17:00 FiO2 3L 05/12/19 17:00 Sodium 136.7 mmol/L (137-145) L 05/13/19 06:05 Potassium 4.4 mmol/L (3.6-5.0) 05/13/19 06:05 Chloride 96 mmol/L (98-107) L 05/13/19 06:05 Carbon Dioxide 30 mmol/L (22-30) 05/13/19 06:05 Anion Gap 11 (5-19) 05/13/19 06:05 BUN 13 mg/dL (7-20) 05/13/19 06:05 Creatinine 0.43 mg/dL (0.52-1.25) L 05/13/19 06:05 Est GFR ( Amer) > 60 (>60) 05/13/19 06:05 Est GFR (MDRD) Non-Af > 60 (>60) 05/13/19 06:05 Glucose 222 mg/dL (75-110) H 05/13/19 06:05 Calcium 9.1 mg/dL (8.4-10.2) 05/13/19 06:05 Total Bilirubin 0.3 mg/dL (0.2-1.3) 05/12/19 16:02 Direct Bilirubin 0.2 mg/dL (0.0-0.4) 05/12/19 16:02 Neonat Total Bilirubin Not Reportable 05/12/19 16:02 Neonat Direct Bilirubin Not Reportable 05/12/19 16:02 Neonat Indirect Bili Not Reportable 05/12/19 16:02 AST 47 U/L (17-59) 05/12/19 16:02 ALT 62 U/L (<50) 05/12/19 16:02 Alkaline Phosphatase 62 U/L (38-126) 05/12/19 16:02 Creatine Kinase 281 U/L (55-170) H 05/12/19 16:02 Troponin I < 0.012 ng/mL 05/12/19 16:02 NT-Pro-B Natriuret Pep 47 pg/mL (<125) 05/12/19 16:02 Total Protein 7.7 g/dL (6.3-8.2) 05/12/19 16:02 Albumin 4.5 g/dL (3.5-5.0) 05/12/19 16:02 Urine Color YELLOW 05/12/19 18:30 Urine Appearance SLIGHTLY-CLOUDY 05/12/19 18:30 Urine pH 5.0 (5.0-9.0) 05/12/19 18:30 Ur Specific Milo 1.030 05/12/19 18:30 Urine Protein 100 mg/dL (NEGATIVE) H 05/12/19 18:30 Urine Glucose (UA) NEGATIVE mg/dL (NEGATIVE) 05/12/19 18:30 Urine Ketones TRACE mg/dL (NEGATIVE) H 05/12/19 18:30 Urine Blood NEGATIVE (NEGATIVE) 05/12/19 18:30 Urine Nitrite NEGATIVE (NEGATIVE) 05/12/19 18:30 Urine Bilirubin NEGATIVE (NEGATIVE) 05/12/19 18:30 Urine Urobilinogen NEGATIVE mg/dL (<2.0) 05/12/19 18:30 Ur Leukocyte Esterase NEGATIVE (NEGATIVE) 05/12/19 18:30 Urine WBC (Auto) 1 /HPF 05/12/19 18:30 Urine RBC (Auto) 0 /HPF 05/12/19 18:30 Urine Bacteria (Auto) TRACE /HPF 05/12/19 18:30 Urine Mucus (Auto) OCC /LPF 05/12/19 18:30 Urine Ascorbic Acid 40 (NEGATIVE) H 05/12/19 18:30 Urine Opiates Screen UNCONFIRMED POSITIVE 05/12/19 18:30 Urine Methadone Screen NEGATIVE 05/12/19 18:30 Ur Barbiturates Screen NEGATIVE 05/12/19 18:30 Ur Phencyclidine Scrn NEGATIVE 05/12/19 18:30 Ur Amphetamines Screen UNCONFIRMED POSITIVE 05/12/19 18:30 U Benzodiazepines Scrn NEGATIVE 05/12/19 18:30 Urine Cocaine Screen NEGATIVE 05/12/19 18:30 U Marijuana (THC) Screen NEGATIVE 05/12/19 18:30 05/12/19 16:02 Troponin I < 0.012 NT-Pro-B Natriuret Pep 47 Impressions: Chest X-Ray 05/12/19 15:42 IMPRESSION: NO ACUTE RADIOGRAPHIC FINDING IN THE CHEST. Plan Plan of Treatment: The patient was discharged home in stable condition. He was instructed to follow-up with his primary care provider within 1 week. He was advised to take his medications as prescribed. He was strongly encouraged to stop smoking. Nursing had noted several episodes of bradycardia, skipped beats, pauses while sleeping at night off BiPAP. Long discussion had with the patient and present about the importance of compliant with his home CPAP therapy. He is instructed to return to the emergency department as needed for concerning symptoms. Stroke Is this a Stroke Patient?: No Acute Heart Failure - Is this a Heart Failure Patient?: No
== END 2019-05-14 12:36 | disposition home or self-care (01) | DRG 189 ==
LOC: ER 15:23 → EH 20:06 → 3S 22:19
PROVIDERS: ADMIT Internal Medicine; ATTEND Internal Medicine
PROC: 5A09457 Assistance with Respiratory Ventilation, 24-96 Consecutive Hours, Continuous Positive Airway Pressure (ICD-10-PCS; principal; 2019-05-12)
DX: J96.02 Acute respiratory failure with hypercapnia (principal); J44.1 Chronic obstructive pulmonary disease with (acute) exacerbation; K21.9 Gastro-esophageal reflux disease without esophagitis; G47.33 Obstructive sleep apnea (adult) (pediatric); K59.00 Constipation, unspecified; E66.01 Morbid (severe) obesity due to excess calories; I10 Essential (primary) hypertension; G89.29 Other chronic pain; E78.5 Hyperlipidemia, unspecified; E78.00 Pure hypercholesterolemia, unspecified; F17.210 Nicotine dependence, cigarettes, uncomplicated; Z79.891 Long term (current) use of opiate analgesic; Z79.899 Other long term (current) drug therapy; Z91.19 Patient's noncompliance with other medical treatment and regimen; Z88.8 Allergy status to other drugs, medicaments and biological substances
CPT/HCPCS: 36415; 36600; 71045; 80048; 80053; 80307; 81001; 82550; 82803; 83880; 84484; 85025; 93005; 93010; 94640; 94660; 94667; 94799; 99285; J0360; J0456; J0696; J1644; J2930; J3475; J3490; J7060; J7512; J7620